=== PATIENT | female | born 1965 | race Caucasian/White ===

== ENCOUNTER 2022-06-30 01:18 | Day surgery (SDC) | payer OTHER, SELFPAY ==
[2022-06-16 15:01] VITALS: BMI 28.2
[2022-06-30 06:58] VITALS: BP 115/62; PULSE 64; RESP 16; TEMP 36.2; O2SAT 100; BMI 27.9
--- NOTE | 2022-06-30 07:02 | P.PNAN_ITS ---
Anes - Initial Pre Proc Eval Procedure: Operation Date: 06/30/22 08:15 Proposed Procedures p Screening Colonoscopy - Jay Benitez MD Date/Time: 06/30/22 07:02 Surgeon: Jay Benitez MD Pre Op Diagnosis: hx colon polyps Patient Data Age: 57 Gender: F Height: 1.65 m Weight: 76.2 kg Last Vital Signs Temp 36.2 C L 06/30/22 06:58 Pulse 64 06/30/22 06:58 Resp 16 06/30/22 06:58 BP 115/62 06/30/22 06:58 Pulse Ox 100 06/30/22 06:58 O2 Del Method Room Air 06/30/22 06:58 Allergies Allergy/AdvReac Type Severity Reaction Status Date / Time codeine Allergy Unknown Unknown Verified 06/30/22 06:57 Home Medications Medication Instructions Recorded Confirmed Type cholecalciferol (vitamin D3) 75 75 mcg PO DAILY 03/25/20 06/30/22 History mcg (3,000 unit) tablet estradiol 1 mg-progesterone 100 mg 1 cap PO QPM 03/25/20 06/30/22 History capsule loratadine 10 mg tablet (Claritin) 10 mg PO DAILY 03/25/20 06/30/22 History omega 9-lbz-vmo-fish oil 1,000 mg 1 cap PO DAILY 03/25/20 06/30/22 History (120 mg-180 mg) capsule (Fish Oil) vitamin B complex (B 1 tablet PO DAILY 03/25/20 06/30/22 History Complex-Vitamin B12 tablet) multivitamin 1 tablet PO DAILY 04/17/21 06/30/22 History Patient hx anesthesia problems: none Family hx anesthesia problems: none Results Review: All pre-operative results and documents have been reviewed as part of the pre- operative evaluation. FORMERLY [facility] Past Medical History Medical History Vaginal delivery x 2 Surgical History Surgical History History of cholecystectomy History of hysterectomy Hx of colonoscopy with polypectomy 2017 [place] teeth removed Family History Family History Mother Hypertension Patient's mother is in good health Family history of type 2 diabetes mellitus Social History Social History Smoking status: Never smoker Second hand tobacco smoke exposure: No Alcohol intake: never Substance use: never Substance use type: does not use and former substance user Living arrangements: with family Spiritual care concerns: No Anes - Eval Final PreProcedure Day of Procedure 06/30/22 07:02 Patient weight: overweight Heart: regular rate and rhythm Lungs: clear to auscultation Airway: Mallampati scale class II Neurological: alert and oriented Last oral intake: >/= 8 hours ASA classification: II Emergent: no Anesthetic plan: proceed Results Review: All pre-operative results and documents have been reviewed as part of the pre- operative evaluation. Informed Consent: The patient's anesthetic plan and its attendant risks and benefits were discussed with the patient/family/POA. Questions were solicited and answers provided to the satisfaction of the patient/family/POA.
[2022-06-30] MEDS: LACTATED RINGERS 1,000 ML 150 ML IV CONT (07:07)
--- NOTE | 2022-06-30 07:59 | PM.IMHP ---
H&P: HPI History of Present Illness Date/Time: 06/30/22 07:59 Chief Complaint: Neoplasia screening. Narrative: This is a 57-year-old white female patient presents for screening colonoscopy. Patient has a history of colon polyps by most recent colonoscopy 5 years ago. Patient reports that her current weight appetite and bowel movements are normal. Patient denies abdominal pain. She has had no bleeding. Family history is noncontributory. Patient presents today for screening colonoscopy. PMFSH Past Medical History Medical History Vaginal delivery x 2 Surgical History Surgical History (Updated 06/30/22 @ 08:01 by Jay Benitez MD) History of cholecystectomy History of hysterectomy Hx of colonoscopy with polypectomy 2017 [place] teeth removed Family History Family History Mother Hypertension Patient's mother is in good health Family history of type 2 diabetes mellitus Social History Social History Smoking status: Never smoker Second hand tobacco smoke exposure: No Alcohol intake: never Substance use: never Substance use type: does not use and former substance user Living arrangements: with family Spiritual care concerns: No Meds Home Medications and Allergies Home Medications Medication Instructions Recorded Confirmed Type cholecalciferol (vitamin D3) 75 75 mcg PO DAILY 03/25/20 06/30/22 History mcg (3,000 unit) tablet estradiol 1 mg-progesterone 100 mg 1 cap PO QPM 03/25/20 06/30/22 History capsule loratadine 10 mg tablet (Claritin) 10 mg PO DAILY 03/25/20 06/30/22 History omega 2-bpn-gpb-fish oil 1,000 mg 1 cap PO DAILY 03/25/20 06/30/22 History (120 mg-180 mg) capsule (Fish Oil) vitamin B complex (B 1 tablet PO DAILY 03/25/20 06/30/22 History Complex-Vitamin B12 tablet) multivitamin 1 tablet PO DAILY 04/17/21 06/30/22 History Allergies Allergy/AdvReac Type Severity Reaction Status Date / Time codeine Allergy Unknown Unknown Verified 06/30/22 06:57 Vital Signs Vital Signs - 24 hr 06/30/22 06:58 Temperature 97.1 F L Pulse Rate 64 Respiratory Rate 16 Blood Pressure 115/62 Pulse Oximetry 100 Oxygen Delivery Room Air Exam Narrative: Physical exam reveals patient to be alert. Vital signs stable. HEENT exam is unremarkable. Patient is anicteric. Lungs are clear to auscultation and percussion. Heart is without murmur or extra sounds. Abdominal exam bowel sounds are present soft nontender with no hepatosplenomegaly. Digital external rectal exam is normal. Assessment and Plan Assessment and plan (1) Hx of colonoscopy with polypectomy: Code(s): Z98.890 - Other specified postprocedural states; Z86.010 - Personal history of colonic polyps Status: Acute Assessment and Plan: Patient has a history of colon polyps most recently 2017. Plan is for surveillance colonoscopy at 5 year intervals. High-fiber diet advised. Further recommendations will be given after endoscopy.
[2022-06-30] MEDS: SIMETHICONE ORAL SUSPENSION 20 MG/0.3 ML 30 ML BOTTLE 0.6 ML IRRIGATION (08:19)
[2022-06-30 08:28] VITALS: BP 87/54; PULSE 70; RESP 22; O2SAT 100
[2022-06-30 08:38] VITALS: BP 94/54; PULSE 70; RESP 20; O2SAT 100
[2022-06-30 08:48] VITALS: BP 103/61; PULSE 60; RESP 18; O2SAT 100
== END 2022-06-30 08:57 | disposition home or self-care (01) ==
PROVIDERS: PCP Family Medicine; Visit Provider Internal Medicine Gastroenterology
PROC: 0DJD8ZZ Inspection of Lower Intestinal Tract, Via Natural or Artificial Opening Endoscopic (ICD-10-PCS; CPT 45378; principal; 2022-06-30 08:15)
DX: Z12.11 Encounter for screening for malignant neoplasm of colon (principal); Z86.010 Personal history of colon polyps; Z90.49 Acquired absence of other specified parts of digestive tract
CPT/HCPCS: 45378; J2704; J7120

== ENCOUNTER → 2023-05-18 14:24 | Outpatient (CLI) | payer OTHER, SELFPAY ==
--- NOTE | ~2023-05-18 | XR_ITS ---
EXAMINATION: XR chest 2V 05/18/2023 14:51 INDICATION: Wheezing. PROCEDURE: 2 view chest COMPARISON: 02/16/2014 FINDINGS: The lungs are clear. The cardiomediastinal silhouette is within normal limits. There are no pleural effusions. There is no pneumothorax suspected. IMPRESSION: 1: NO ACUTE CARDIOPULMONARY DISEASE. Reviewed, dictated and finalized at location A.
== END ==
PROVIDERS: PCP Family Medicine; Visit Provider Physician Assistant
DX: R06.2 Wheezing (principal)
CPT/HCPCS: 71046

== ENCOUNTER 2024-01-17 13:39 | Outpatient (CLI) | payer OTHER, SELFPAY ==
--- NOTE | ~2024-01-17 | XR_ITS ---
EXAMINATION: [id number] INDICATION: Cough and right-sided rib pain TECHNIQUE: A frontal view of the chest and 3 views of the right ribs were obtained. COMPARISON: 05/18/2023 FINDINGS: The lungs are free of acute opacities. No pleural effusion or pneumothorax. The cardiomedia stinal silhouette is normal. No displaced rib fracture is identified. Surgical clips in the right upp er quadrant are likely from prior cholecystectomy. IMPRESSION: 1. No acute cardiopulmonary abnormality or evidence of displaced rib fracture. Reviewed, dictated and finalized at location F.
== END 2024-01-17 13:40 ==
PROVIDERS: PCP Physician Assistant; Visit Provider Physician Assistant
DX: R07.89 Other chest pain (principal)
CPT/HCPCS: 71101